=== PATIENT | female | born 1985 | race African-American/Black ===

== ENCOUNTER → 2021-06-03 | Outpatient (CLI) | payer BC | END | disposition home or self-care (01) | LOC: LAB 15:13 | PROVIDERS: ATTEND Podiatrist Foot & Ankle Surgery | DX: B07.0 Plantar wart (principal) ==

== ENCOUNTER 2023-12-07 14:00 | Inpatient (IN) | payer BC ==
[~2023-12-07] VITALS: Ht 165.1 cm; Wt 126.0 kg
[~2023-12-07 14:00] MED LIST: AMIT10TA9 GT; DOCU100T15 PO; DOXE25CA2 PO; FLUT50SP NAS; LISI-707 PO; LURA20TA PO; OMEP-434 PO; ONDA-144 PO; PANT40T PO; PROP1TAB51 PO; QUET100T47 PO; SUCR1SUS26 PO; SUCR1TAB PO
[2023-12-07 15:02] LABS: Urine Epithelial Cast None Seen /hpf (<5)
[2023-12-07 15:07] LABS: Basophils # (auto) 0 10 ^3/uL (0-0.2); Basophils % (auto) 0.2 % (0.0-2.0); Eosinophils # (auto) 0 10 ^3/uL (0-0.8); Eosinophils % (auto) 0.3 % (0.0-7.0); Hematocrit 46.3 % (36.0-46.0); Hemoglobin 15.4 g/dL (12.2-16.2); Lymphocytes # (auto) 2.3 10 ^3/uL (0.4-5.4); Lymphocytes % (auto) 18.3 % (10.0-50.0); Mean Corpuscular Hemoglobin 31.2 pg (28.0-32.0); Mean Corpuscular Hgb Conc. 33.2 g/dL (32.0-36.0); Mean Corpuscular Volume 93.7 fL (80.0-100.0); Monocytes # (auto) 0.7 10 ^3/uL (0-1.3); Monocytes % (auto) 5.9 % (0.0-12.0); Neutrophils # (auto) 9.6 10 ^3/uL (1.6-8.6); Neutrophils % (auto) 75.3 % (37.0-80.0); Nucleated Red Blood Cells % 0.1 %; Red Blood Cells 4.94 10^6/uL (4.0-5.20); Red Cell Distribution Width 13.7 % (11.8-14.3); White Blood Cell 12.7 10^3/uL (4.4-10.8)
[2023-12-07 15:17] LABS: Urine Bacteria NONE SEEN /hpf (None Seen); Urine Blood Negative /uL (Negative); Urine Clarity Clear (Clear); Urine Color Yellow (Yellow); Urine Mucus FEW (None Seen); Urine Protein, UAD TRACE (Negative); Urine Specific Gravity 1.021 (1.001-1.035); Urine WBC 3 /hpf (0 - 5); Urine pH 7.5 (5.0-8.0)
[2023-12-07 15:26] LABS: Alanine Aminotransferase 43 U/L (7-40); Alkaline Phosphatase 72 U/L (46-116); Anion Gap 8 (5-15); Aspartate Aminotransferase 25 U/L (13-40); Blood Urea Nitrogen 6 mg/dL (9-23); Calcium 9.8 mg/dL (8.7-10.4); Carbon Dioxide 28 mmol/L (20-30); Chloride 100 mmol/L (98-107); Glucose 97 mg/dL (74-106); Lipase 338 U/L (12-53); Potassium 3.3 mmol/L (3.5-5.1); Sodium 136 mmol/L (136-145)
[2023-12-07 15:27] LABS: Albumin 4.9 g/dL (3.2-4.8); Bilirubin, Total 0.4 mg/dL (0.2-1.0); Total Protein 8.1 g/dL (5.7-8.2)
[2023-12-07] MEDS ORDERED: metroNIDAZOLE 500MG/100ML 100 ML IV ONE (16:45)
[2023-12-07] MEDS ORDERED: MORPHINE SULFATE INJ 2 MG/ml SYRG IV ONE (16:45)
[2023-12-07] MEDS ORDERED: LACTULOSE 20Gm/30ML SOLN PO ONE (16:45)
[2023-12-07] MEDS ORDERED: POTASSIUM CHL 20 Meq TABLET PO ONE (16:45)
[2023-12-07] MEDS ORDERED: ONDANSETRON HCL 4 MG/2 ML VIAL IV ONE (16:45)
[2023-12-07] MEDS ORDERED: DEXTROSE (50%) 50ML SYRG IV PRN (16:45)
[2023-12-07] MEDS ORDERED: ACETAMINOPHEN 325 MG TAB PO PRN (16:45)
[2023-12-07] MEDS ORDERED: cefTRIAXone 1GM/50ML D5W 50 ML IV ONE (16:45)
[2023-12-07] MEDS ORDERED: SODIUM CHLORIDE 0.9% 1,000 ML IV ONE (16:45)
[2023-12-07] MEDS ORDERED: DOCUSATE SOD 100 MG CAP PO PRN (16:45)
[2023-12-07] MEDS ORDERED: PRA1C PO (16:56)
[2023-12-07] MEDS ORDERED: CARI1CAP2 PO (16:56)
[2023-12-07] MEDS ORDERED: PROP60CA37 PO (16:56)
[2023-12-07] MEDS ORDERED: QUET300T24 PO (16:56)
[2023-12-07 17:50] VITALS: PULSE 93; RESP 18; O2SAT 98
[2023-12-07] MEDS: SUCRALFATE 1 GM/10 ML ORAL SUSP PO SCH ×2 (18:04→22:56)
[2023-12-07] MEDS: ACCU-CHEK COMFORT CURVE STRIP VI SCH ×2 (18:07→22:48)
[2023-12-07] MEDS: InsuLIN REG 1unit/0.01ml Soln (100units/ml) SC SCH ×2 (18:11→22:00)
[2023-12-07] MEDS: SODIUM CHLORIDE 0.9% 1,000 ML IV SCH (18:27)
[2023-12-07] MEDS ORDERED: diphenhdrAMINE HCL 50 MG/1 ML VL IV ONE (18:30)
[2023-12-07 20:00] VITALS: PULSE 83; RESP 17; O2SAT 99
[2023-12-07] MEDS: ONDANSETRON HCL 4 MG/2 ML VIAL IV PRN (20:09)
[2023-12-07] MEDS: PRAZOSIN HCL 1 MG CAP PO SCH (22:00)
[2023-12-07] MEDS: MORPHINE SULFATE INJ 2 MG/ml SYRG IV PRN (22:01)
[2023-12-07] MEDS: PANTOPRAZOLE 40 MG/10 ML VIAL INJ IV SCH (22:55)
[2023-12-07] MEDS: metroNIDAZOLE 500MG/100ML 100 ML IV SCH (22:55)
[2023-12-07] MEDS: QUEtiapine FUMARATE 100 MG TAB PO SCH (22:56)
[2023-12-08] MEDS: HYDROcodone-ACET 5/325MG TAB PO PRN ×2 (00:48→08:17)
[2023-12-08] MEDS: SODIUM CHLORIDE 0.9% 1,000 ML IV SCH ×4 (01:07→21:55)
[2023-12-08] MEDS: ONDANSETRON HCL 4 MG/2 ML VIAL IV PRN ×5 (02:17→21:38)
[2023-12-08] MEDS: MORPHINE SULFATE INJ 2 MG/ml SYRG IV PRN ×2 (04:06→11:11)
[2023-12-08] MEDS: metroNIDAZOLE 500MG/100ML 100 ML IV SCH ×3 (05:36→21:46)
[2023-12-08 06:21] LABS: Basophils # (auto) 0 10 ^3/uL (0-0.2); Basophils % (auto) 0.2 % (0.0-2.0); Eosinophils # (auto) 0.1 10 ^3/uL (0-0.8); Hematocrit 40.5 % (36.0-46.0); Hemoglobin 13.7 g/dL (12.2-16.2); Lymphocytes # (auto) 2.2 10 ^3/uL (0.4-5.4); Lymphocytes % (auto) 22.4 % (10.0-50.0); Mean Corpuscular Hgb Conc. 33.9 g/dL (32.0-36.0); Mean Corpuscular Volume 91.4 fL (80.0-100.0); Monocytes # (auto) 0.8 10 ^3/uL (0-1.3); Monocytes % (auto) 7.6 % (0.0-12.0); Neutrophils # (auto) 6.9 10 ^3/uL (1.6-8.6); Neutrophils % (auto) 68.8 % (37.0-80.0); Red Blood Cells 4.43 10^6/uL (4.0-5.20); Red Cell Distribution Width 13.6 % (11.8-14.3)
[2023-12-08] MEDS: ACCU-CHEK COMFORT CURVE STRIP VI SCH ×4 (06:43→21:45)
[2023-12-08] MEDS: InsuLIN REG 1unit/0.01ml Soln (100units/ml) SC SCH ×4 (06:43→21:54)
[2023-12-08 06:44] LABS: Alanine Aminotransferase 37 U/L (7-40); Albumin 4.2 g/dL (3.2-4.8); Alkaline Phosphatase 61 U/L (46-116); Anion Gap 10 (5-15); Aspartate Aminotransferase 18 U/L (13-40); BUN/Creatinine Ratio 8.5 (10.0-20.0); Bilirubin, Total 0.5 mg/dL (0.2-1.0); Blood Urea Nitrogen 7 mg/dL (9-23); Calcium 9.2 mg/dL (8.5-10.1); Carbon Dioxide 25 mmol/L (20-30); Chloride 103 mmol/L (98-107); Glucose 92 mg/dL (74-106); Potassium 3.1 mmol/L (3.5-5.1); Sodium 138 mmol/L (136-145)
[2023-12-08 06:45] LABS: Total Protein 6.7 g/dL (5.7-8.2)
[2023-12-08] MEDS: SUCRALFATE 1 GM/10 ML ORAL SUSP PO SCH ×4 (06:45→21:38)
[2023-12-08 07:30] VITALS: RESP 18; O2SAT 99
[2023-12-08] MEDS ORDERED: POTASSIUM CHL 20 Meq TABLET PO ONE (07:30)
[2023-12-08] MEDS: cefTRIAXone 1GM/50ML D5W 50 ML IV SCH (08:11)
[2023-12-08 09:25] VITALS: BP 159/99; PULSE 114; RESP 17; TEMP 98; O2SAT 99
[2023-12-08] MEDS: PROPRANOLOL HCL 20 MG TAB PO SCH (10:50)
[2023-12-08] MEDS: PRAZOSIN HCL 1 MG CAP PO SCH ×2 (10:51→21:54)
[2023-12-08] MEDS: hydroCHLOROthiazide 25 MG TAB PO SCH (10:51)
[2023-12-08] MEDS: PANTOPRAZOLE 40 MG/10 ML VIAL INJ IV SCH (10:52)
[2023-12-08] MEDS: LISINOPRIL 20 MG TAB PO SCH (10:52)
[2023-12-08] MEDS ORDERED: TRAZ-227 PO (10:59)
[2023-12-08] MEDS ORDERED: PRAZ2CAP2 PO (10:59)
[2023-12-08 12:47] VITALS: RESP 17
[2023-12-08 13:00] VITALS: BP 144/102; PULSE 103; RESP 17; TEMP 98.1; O2SAT 99
[2023-12-08] MEDS ORDERED: LACTULOSE 20Gm/30ML SOLN PO PRN (13:00)
[2023-12-08 17:00] VITALS: BP 146/94; PULSE 87; RESP 17; TEMP 98.1; O2SAT 99
[2023-12-08] MEDS: MORPHINE SULFATE 4 MG/ML SYR/VIAL IV PRN ×2 (17:03→21:46)
[2023-12-08] MEDS: QUEtiapine FUMARATE 100 MG TAB PO SCH (21:38)
[2023-12-08 22:00] VITALS: BP 129/77; PULSE 95; RESP 18; TEMP 98.4; O2SAT 98
[2023-12-09] MEDS: MORPHINE SULFATE 4 MG/ML SYR/VIAL IV PRN ×2 (03:45→09:27)
[2023-12-09] MEDS: ONDANSETRON HCL 4 MG/2 ML VIAL IV PRN ×3 (03:45→21:12)
[2023-12-09 05:00] VITALS: BP 118/65; PULSE 96; RESP 18; TEMP 98.1; O2SAT 100
[2023-12-09] MEDS: metroNIDAZOLE 500MG/100ML 100 ML IV SCH ×2 (05:06→14:33)
[2023-12-09] MEDS: SUCRALFATE 1 GM/10 ML ORAL SUSP PO SCH ×4 (06:23→21:12)
[2023-12-09] MEDS: ACCU-CHEK COMFORT CURVE STRIP VI SCH ×4 (06:26→21:19)
[2023-12-09] MEDS: InsuLIN REG 1unit/0.01ml Soln (100units/ml) SC SCH ×4 (06:27→21:19)
[2023-12-09 07:30] VITALS: PULSE 78
[2023-12-09 08:19] VITALS: BP 140/80; PULSE 96; RESP 20; TEMP 98.3; O2SAT 100
[2023-12-09] MEDS: PRAZOSIN HCL 1 MG CAP PO SCH ×2 (09:23→21:37)
[2023-12-09] MEDS: LISINOPRIL 20 MG TAB PO SCH (09:24)
[2023-12-09] MEDS: PROPRANOLOL HCL 20 MG TAB PO SCH (09:25)
[2023-12-09] MEDS: hydroCHLOROthiazide 25 MG TAB PO SCH (09:25)
[2023-12-09] MEDS: cefTRIAXone 1GM/50ML D5W 50 ML IV SCH (09:26)
[2023-12-09] MEDS: PANTOPRAZOLE 40 MG TAB PO SCH (09:26)
[2023-12-09] MEDS: SODIUM CHLORIDE 0.9% 1,000 ML IV SCH ×2 (10:25→16:36)
[2023-12-09 12:56] VITALS: BP 99/71; PULSE 78; RESP 20; TEMP 98.2; O2SAT 99
[2023-12-09] MEDS: HYDROcodone-ACET 5/325MG TAB PO PRN (16:02)
[2023-12-09 17:15] VITALS: BP 127/92; PULSE 47; RESP 21; TEMP 98.3; O2SAT 99
[2023-12-09] MEDS: QUEtiapine FUMARATE 100 MG TAB PO SCH (21:12)
[2023-12-09] MEDS: metroNIDAZOLE 500 MG TAB PO SCH (21:12)
[2023-12-09 22:00] VITALS: BP 122/77; PULSE 95; RESP 18; O2SAT 99
[2023-12-10] MEDS: ONDANSETRON HCL 4 MG/2 ML VIAL IV PRN ×2 (00:21→07:04)
[2023-12-10] MEDS: HYDROcodone-ACET 5/325MG TAB PO PRN (00:22)
[2023-12-10] MEDS: SODIUM CHLORIDE 0.9% 1,000 ML IV SCH ×2 (02:12→11:25)
[2023-12-10 05:00] VITALS: BP 117/69; PULSE 89; RESP 17; TEMP 97.6; O2SAT 99
[2023-12-10] MEDS: SUCRALFATE 1 GM/10 ML ORAL SUSP PO SCH ×2 (06:04→09:52)
[2023-12-10] MEDS: metroNIDAZOLE 500 MG TAB PO SCH ×2 (06:04→14:00)
[2023-12-10] MEDS: ACCU-CHEK COMFORT CURVE STRIP VI SCH ×2 (06:06→11:30)
[2023-12-10] MEDS: InsuLIN REG 1unit/0.01ml Soln (100units/ml) SC SCH ×2 (06:06→11:30)
[2023-12-10 07:30] VITALS: PULSE 89
[2023-12-10] MEDS: MORPHINE SULFATE 4 MG/ML SYR/VIAL IV PRN (08:01)
[2023-12-10] MEDS ORDERED: PROMETHAZINE HCL 25 MG/ML 1ML IV PRN (08:30)
[2023-12-10 09:01] VITALS: BP 164/107; PULSE 91; RESP 17; TEMP 98.5; O2SAT 100
[2023-12-10] MEDS: PRAZOSIN HCL 1 MG CAP PO SCH (09:52)
[2023-12-10] MEDS: PROPRANOLOL HCL 20 MG TAB PO SCH (09:53)
[2023-12-10] MEDS: hydroCHLOROthiazide 25 MG TAB PO SCH (09:53)
[2023-12-10] MEDS: PANTOPRAZOLE 40 MG TAB PO SCH (09:54)
[2023-12-10] MEDS: cefTRIAXone 1GM/50ML D5W 50 ML IV SCH (09:54)
[2023-12-10] MEDS: LISINOPRIL 20 MG TAB PO SCH (09:54)
[2023-12-10] MEDS ORDERED: LEVO500T91 PO (12:46)
[2023-12-10] MEDS ORDERED: METR-344 PO (12:46)
[2023-12-10] MEDS ORDERED: PANT40T PO (12:46)
[2023-12-10] MEDS ORDERED: HYDR-4902 PO (12:46)
[2023-12-10] MEDS ORDERED: SUCR1TAB22 PO (12:46)
[2023-12-10 12:50] VITALS: BP 134/84; PULSE 89; RESP 16; TEMP 98.5; O2SAT 99
[2023-12-10 13:41] VITALS: BP 134/84; PULSE 89; RESP 16; TEMP 98.5; O2SAT 99
== END 2023-12-10 15:20 | disposition home or self-care (01) | DRG 391 ==
LOC: ER 14:00 → OVERFLOW 16:54 → EAST 12-08 09:20
PROVIDERS: ADMIT Nurse Practitioner Family; ATTEND Family Medicine
DX: K52.9 Noninfective gastroenteritis and colitis, unspecified (principal); K85.90 Acute pancreatitis without necrosis or infection, unspecified; Z68.42 Body mass index [BMI] 45.0-49.9, adult; F31.9 Bipolar disorder, unspecified; I10 Essential (primary) hypertension; F10.10 Alcohol abuse, uncomplicated; E87.6 Hypokalemia; K76.0 Fatty (change of) liver, not elsewhere classified; R73.03 Prediabetes; F17.210 Nicotine dependence, cigarettes, uncomplicated; E66.01 Morbid (severe) obesity due to excess calories; Z88.8 Allergy status to other drugs, medicaments and biological substances; Z90.710 Acquired absence of both cervix and uterus
CPT/HCPCS: 36415; 74176; 80053; 81001; 82962; 83690; 85025; 87081; 96365; 96375; C9113; G0378; J2405; J3490